=== PATIENT | male | born 1970 | race Caucasian/White ===

== ENCOUNTER 2020-12-04 15:49 | Outpatient (CLI) | payer OTHER, SELFPAY ==
--- NOTE | 2020-12-04 16:01 | XR_ITS ---
WS: [id number] PROCEDURE: XR chest 2V* [id number] CLINICAL INFORMATION: BILATERAL LOWER EXTREMITY EDEMA COMPARISON: FINDINGS: Heart: Cardiomegaly. Lungs: Lungs are clear. No consolidation or pleural fluid. No acute pulmonary infiltrates. Bones: Bilateral total shoulder arthroplasty. Postoperative changes lower cervical spine. XR/XR chest 2V* [id number] IMPRESSION: No acute chest findings.
== END 2020-12-04 15:50 | disposition home or self-care (01) ==
PROVIDERS: PCP Family Medicine; Visit Provider Registered Nurse
DX: R60.0 Localized edema (principal)
CPT/HCPCS: 71046

== ENCOUNTER 2022-04-03 11:42 | Emergency (ER) | payer OTHER, SELFPAY ==
[2022-04-03 11:55] VITALS: BP 119/72; PULSE 85; RESP 18; TEMP 37.4; O2SAT 100; BMI 33.5
[2022-04-03 12:49] LABS: Basophils % 0.3 %; Eosinophils # 0.1 10^3/uL (0.0-0.8); Eosinophils % 1.1 %; Hematocrit 42.5 % (42.0-52.0); Hemoglobin 13.2 g/dL (11.7-16.6); Lymphocytes # 1.1 10^3/uL (0.8-4.8); Lymphocytes % 17.1 %; Mean Corpuscular HGB Conc 31.1 g/dL (30.0-36.0); Mean Corpuscular Hemoglobin 28.5 pg (28.0-34.0); Mean Corpuscular Volume 91.8 fl (80-94); Mean Platelet Volume 9.7 fL (7.4-10.4); Monocytes # 0.4 10^3/uL (0.2-0.9); Monocytes % 6.4 %; Neutrophils # 4.82 10^3/uL (1.8-7.7); Neutrophils % 74.8 %; Nucleated Red Blood Cells % 0 %; Platelet Count 263 10^3/cmm (130-400); Red Blood Count 4.63 10^6/uL (4.1-5.3); Red Cell Distribution Width 12.3 % (12.1-15.1); White Blood Count 6.4 10^3/uL (4.0-10.0)
[2022-04-03 13:05] LABS: Add Urine Microscopic? NO; Charge for UA Resulting for Rev
[2022-04-03 13:07] LABS: Alanine Aminotransferase 17 U/L (0-41); Albumin Level 4.4 g/dL (3.5-5.2); Alkaline Phosphatase 115 U/L (40-130); Anion Gap 15.3 (5-19); Aspartate Amino Transferase 19 U/L (0-40); Blood Urea Nitrogen 8 mg/dL (6-20); Calcium 9.3 mg/dL (8.5-10.5); Carbon Dioxide 26 mmol/L (22-29); Chloride 99 mmol/L (98-107); Glomerular Filtration Rate 102.3 mL/min (90-130); Glucose 98 mg/dL (65-115); Lactate (Lactic Acid level) 1.4 mmol/L (0.5-2.2); Osmolality Calculated 280 mOsm/kg (285-295); Potassium 4.3 mmol/L (3.5-5.1); Sodium 136 mmol/L (136-145); Total Bilirubin 0.4 mg/dL (0.15-1.2); Total Protein 7.4 g/dL (6.6-8.7)
[2022-04-03 13:11] LABS: Bilirubin Urine Neg (Negative); Blood Urine Neg (Negative); Glucose Urine UA Norm (Normal); Ketones Urine Negative (Negative); Leukocyte Esterase Urine Negative (Negative); Nitrate Urine Negative (Negative); Protein Urine Neg (Negative); Specific Gravity, Urine 1.005 (1.005-1.030); Sulfosalicylic Acid Urine Negative (Negative); Urine Appearance Clear (CLEAR); Urine Color Yellow (Yellow); Urobilinogen Urine Norm (Negative); pH Urine 8 (5-7)
--- NOTE | 2022-04-03 14:18 | CT_ITS ---
WS: [id number] CT ABDOMEN PELVIS TECHNIQUE: Contrast-enhanced CT of the abdomen and pelvis with coronal and sagittal reformatted image s. CLINICAL INFORMATION: hernia with possible incarcaration COMPARISON: CT 04/16 2016 DLP: 1111.[address] scans at [facility] use at least one of these dose optimization techniques: automated e xposure control; mA and/or kV adjustment per patient size (includes targeted exams where dose is matc hed to clinical indication); or iterative reconstruction. FINDINGS: Small fat-containing umbilical hernia with a tiny amount of surrounding induration. No drainable flui d collection. No herniated bowel. Umbilical hernia has progressed since 2016. Diffuse fatty infiltration of the liver. Normal spleen. Normal gallbladder. Fatty atrophy of the panc reas. Normal GE junction. Lung bases are well aerated. Normal portal vein and splenic vein. Adrenal g lands are normal. Normal renal parenchymal enhancement. No hydronephrosis. No obstructing renal or ur eteral calculi. A few subcentimeter nonobstructing renal parenchymal calculi. Normal caliber abdominal aorta. Celiac and SMA are patent. Prostate calcification. Sigmoid diverticul osis. No evidence of acute diverticulitis. Normal appendix in the RIGHT lower quadrant. CT/CT abdomen pelvis w con* [id number] IMPRESSION: 1. Small incarcerated fat-containing umbilical hernia with a small amount of a ssociated induration. No herniated bowel or fluid collection. Recommend correla tion with area of pain. 2. Mild diffuse fatty infiltration of the liver. 3. Small esophageal hiatal hernia. 4. No other acute findings.
--- NOTE | 2022-04-03 15:07 | ED_ITS ---
HPI - Abdominal Pain General: Chief Complaint: Abdominal Pain Stated Complaint: possible hernia Time Seen by Provider: 04/03/22 14:50 Source: patient Mode of arrival: ambulatory History of Present Illness: 52-year-old male presents emergency room with an umbilical hernia. He was at the doctor's office has a protruding umbilical hernia has had it for the last 5 days he has not had any difficulty with bowel or bladder he has been passing flatus having bowel movements normally through today. Has not had any fever sweats or chills no vomiting is been able to eat and drink without difficulty. He just began to notice it a few days ago. MD elicited complaint: abdominal pain Onset (ago): day(s) Pain Consistency: intermittent Location: Periumbilical Severity: mild Quality: cramping Radiation: none Migration to: no migration Exacerbating factors: other (Palpation) Relieving factors: nothing Associated Symptoms: Reports bloating, GI cramping and nausea; Denies anorexia, belching, change in bowel habits, change in stool character, chills, coffee ground emesis, constipation, diarrhea, dyspepsia, dysuria, excessive flatus, fever(s), heartburn, hematochezia, hematuria, hematemesis, fecal incontinence, loose stools, melena, poor appetite, syncope and vomiting Review of Systems Const: Denies: fever(s), chills, fatigue or malaise ENMT: Denies: throat pain, ear or mastoid pain, nasal discharge or nasal congestion Card: Denies: chest pain, palpitations, irregular heart rhythm or syncope Resp: Denies: dyspnea, productive cough or non-productive cough GI: Reports: nausea, bloating and GI cramping; Denies: vomiting, hematemesis, coffee ground emesis, heartburn, diarrhea, constipation, belching, excessive flatus, fecal incontinence, change in bowel habits, change in stool character, hematochezia or melena : Denies: flank pain, difficulty urinating, dysuria, urinary frequency, urinary urgency or hematuria Skin/Breast: Denies: rash or pruritus PFSH ED PFSH: Medical History (Updated 04/18/22 @ 06:28 by Jamey Sparrow DO) Depression Hypogonadism Surgical History History of back surgery Hx of appendectomy Hx of colonoscopy Hx of hand surgery Hx of right knee surgery Hx of shoulder replacement Social History Smoking and tobacco status: never smoked Alcohol intake: unknown Physical Exam Const: COMMON NORMALS: no acute distress GENERAL APPEARANCE: cooperative and comfortable ORIENTATION/CONSCIOUSNESS: Yes awake, Yes oriented to person, Yes oriented to place and Yes oriented to time Resp: COMMON NORMALS: normal respiratory effort, No retractions, No use of accessory muscles and clear to auscultation bilaterally AUSCULTATION: clear to auscultation bilaterally Cardio: COMMON NORMALS: regular rate, regular rhythm and No murmurs present (Cardio) RATE: regular rate RHYTHM: regular rhythm GI: COMMON NORMALS: Soft to palpation and No hepatosplenomegaly present AUS CULTATION: Yes normoactive bowel sounds PALPATION: Yes Soft to palpation, No Tenderness to palpation present (GI), No Guarding due to palpation present (GI) and Yes No hepatosplenomegaly present OTHER: Small umbilical herniaModerately painful but able to reduce. Extremity: COMMON NORMALS: normal to inspection, capillary refill normal, no clubbing, cyanosis or edema, no calf tenderness and no pedal edema Neuro: SENSORIUM/ORIENTATION: Yes oriented to person, Yes oriented to place and Yes oriented to time Skin: COMMON NORMALS: no rashes or lesions noted GENERAL SKIN EXAM: no rashes or lesions noted Course Vital Signs: Vital signs: Vital Signs Temperature 99.3 F 04/03/22 11:55 Pulse Rate 87 04/03/22 17:21 Respiratory Rate 14 04/03/22 17:21 Blood Pressure 128/78 04/03/22 17:21 Pulse Oximetry 98 04/03/22 17:21 Oxygen Delivery Me thod 04/03/22 11:55 MDM - Abdominal Pain Medical Decision Making Reducible umbilical hernia. Limit heavy lifting we will schedule with general surgery for evaluation if develops nausea vomiting return to the emergency room Medical Records I reviewed the patient's medical records. Lab Data I reviewed the patient's lab results. : 04/03/22 12:37 04/03/22 12:37 Labs/Radiology: Radiology Impressions Abdomen/Pelvis CT 04/03/22 14:18 IMPRESSION: 1. Small incarcerated fat-containing umbilical hernia with a small amount of associated induration. No herniated bowel or fluid collection. Recommend correlation with area of pain. 2. Mild diffuse fatty infiltration of the liver. 3. Small esophageal hiatal hernia. 4. No other acute findings. Laboratory Results WBC 6.4 10^3/uL (4.0-10.0) 04/03/22 12:37 RBC 4.63 10^6/uL (4.1-5.3) 04/03/22 12:37 Hgb 13.2 g/dL (11.7-16.6) 04/03/22 12:37 Hct 42.5 % (42.0-52.0) 04/03/22 12:37 MCV 91.8 fl (80-94) 04/03/22 12:37 MCH 28.5 pg (28.0-34.0) 04/03/22 12:37 MCHC 31.1 g/dL (30.0-36.0) 04/03/22 12:37 RDW 12.3 % (12.1-15.1) 04/03/22 12:37 Plt Count 263 10^3/cmm (130-400) 04/03/22 12:37 MPV 9.7 fL (7.4-10.4) 04/03/22 12:37 Neut % (Auto) 74.8 % 04/03/22 12:37 Lymph % (Auto) 17.1 % 04/03/22 12:37 Calloway % (Auto) 6.4 % 04/03/22 12:37 Eos % (Auto) 1.1 % 04/03/22 12:37 Baso % (Auto) 0.3 % 04/03/22 12:37 Neut # (Auto) 4.82 10^3/uL (1.8-7.7) 04/03/22 12:37 Lymph # (Auto) 1.1 10^3/uL (0.8-4.8) 04/03/22 12:37 Calloway # (Auto) 0.4 10^3/uL (0.2-0.9) 04/03/22 12:37 Eos # (Auto) 0.1 10^3/uL (0.0-0.8) 04/03/22 12:37 Baso # (Auto) 0.0 10^3/uL (0.0-0.1) 04/03/22 12:37 Nucleated RBC % (auto) 0 % 04/03/22 12:37 Nucleated RBCs # 0.0 /100WBC 04/03/22 12:37 Sodium 136 mmol/L (136-145) 04/03/22 12:37 Potassium 4.3 mmol/L (3.5-5.1) 04/03/22 12:37 Chloride 99 mmol/L (98-107) 04/03/22 12:37 Carbon Dioxide 26 mmol/L (22-29) 04/03/22 12:37 Anion Gap 15.3 (5-19) 04/03/22 12:37 BUN 8 mg/dL (6-20) 04/03/22 12:37 Creatinine 0.8 mg/dL (0.7-1.2) 04/03/22 12:37 GFR Calculation 102.3 mL/min (90-130) 04/03/22 12:37 Glucose 98 mg/dL (65-115) 04/03/22 12:37 Calculated Osmolality 280 mOsm/kg (285-295) L 04/03/22 12:37 Lactate 1.4 mmol/L (0.5-2.2) 04/03/22 12:37 Calcium 9.3 mg/dL (8.5-10.5) 04/03/22 12:37 Total Bilirubin 0.4 mg/dL (0.15-1.2) 04/03/22 12:37 AST 19 U/L (0-40) 04/03/22 12:37 ALT 17 U/L (0-41) 04/03/22 12:37 Alkaline Phosphatase 115 U/L (40-130) 04/03/22 12:37 Total Protein 7.4 g/dL (6.6-8.7) 04/03/22 12:37 Albumin 4.4 g/dL (3.5-5.2) 04/03/22 12:37 Globulin 3.0 g/dL (1.3-4.6) 04/03/22 12:37 Urine Color Yellow (Yellow) 04/03/22 12:45 Urine Appearance Clear (CLEAR) 04/03/22 12:45 Urine pH 8 (5-7) H 04/03/22 12:45 Ur Specific Lambert 1.005 (1.005-1.030) 04/03/22 12:45 Urine Protein Neg (Negative) 04/03/22 12:45 Urine Glucose (UA) Norm (Normal) 04/03/22 12:45 Urine Ketones Negative (Negative) 04/03/22 12:45 Urine Blood Neg (Negative) 04/03/22 12:45 Urine Nitrate Negative (Negative) 04/03/22 12:45 Urine Bilirubin Neg (Negative) 04/03/22 12:45 Prot Sulfosalicylic Acd Negative (Negative) 04/03/22 12:45 Urine Urobilinogen Norm mg/dL (Negative) 04/03/22 12:45 Ur Leukocyte Esterase Negative (Negative) 04/03/22 12:45 Discharge Plan Discharge Patient Disposition: Home Clinical Impression: Hernia, umbilical Prescriptions: No Action phentermine 37.5 mg tablet 37.5 mg PO DAILY tramadol 50 mg tablet 100 mg PO Q8H PRN (Reason: Pain) citalopram 20 mg tablet 20 mg PO DAILY bumetanide 1 mg tablet 1 mg PO DAILY testosterone cypionate 200 mg/mL oil See Rx Instructions .ROUTE .COMPLEX Rx Instructions: 0.5 ML INTRAMUSCULARLY EVERY 28 DAYS Discharge Orders: Discharge ED (Routine); Ordered 04/03/22 Ordered By: Jamey Sparrow Referrals: Robson Valentine [Primary Care Provider] - Patient Instructions: Opioid Safety Activity Restrictions/Additional Instructions: senior business development manager will make arrangements for her to follow-up with general surgery for the umbilical hernia. Avoid any lifting greater than 10 pounds. Stand Alone Forms: Work/School Release Coding Level of Care Code ED Radiology Aide for [employer] Fwd Exam Detailed
[2022-04-03] MEDS: iohexol 350 mg/mL 100 mL Btl IV (15:44)
[2022-04-03 16:45] VITALS: BP 138/74; PULSE 89; RESP 16
[2022-04-03 17:21] VITALS: BP 128/78; PULSE 87; RESP 14; O2SAT 98
--- NOTE | 2022-04-06 11:07 | DCPLANNER ---
Addendum entered by Colleen Galicia 04/08/22 08:36: Patient had a follow up appointment scheduled for 04.07.[address] Agawral at general surgery - patient did attend appointment. Original Note: records and information manager had message to schedule a follow up appointment for patient with general surgery. records and information manager sent patients information to the front office staff at general surgery. Clinic will call patient with appointment information.
== END 2022-04-03 17:22 | disposition home or self-care (01) ==
PROVIDERS: Emergency Medicine; Physician Assistant; Emergency Provider Family Medicine; PCP Family Medicine
DX: K42.9 Umbilical hernia without obstruction or gangrene (principal)
CPT/HCPCS: 74177; 80053; 81003; 83605; 85025; 99285; Q9967

== ENCOUNTER 2022-04-23 07:28 | Day surgery (SDC) | payer OTHER, SELFPAY ==
[2022-04-22 13:04] VITALS: BMI 34.2
[2022-04-23] VITALS (10 sets, daily range): BP systolic 117–132; BP diastolic 76–97; PULSE 64–77; RESP 15–18; TEMP 36.3–36.7; O2SAT 96–100
[2022-04-23] MEDS: sodium chloride 0.9% 1,000 ML 30 ML IV (08:35)
--- NOTE | 2022-04-23 08:52 | ANES.PREANE2 ---
Pre-Anesthetic Assessment Height/Weight: Height 1.8 m Weight 111.13 kg Temp Pulse Resp BP Pulse Ox O2 Del Method 98.0 F 65 16 128/97 99 04/23/22 07:57 04/23/22 07:57 04/23/22 07:57 04/23/22 07:57 04/23/22 07:57 04/23/22 07:57 Preop Diagnosis: umbilical hernia Operation Date: 04/23/22 08:50 Proposed Procedures p Laparoscopic Umbilical Hernia Repair(Not Applicable) - Jefry Agarwal DO Familial anesthetic complications: None Was Beta Chan taken within 24 hours: N/A Was Clonidine taken within 24 hours: N/A Last intake: Intake Last Liquid Date 04/22/22 Last Liquid Time 17:00 Last Solid Date 04/22/22 Last Solid Time 17:00 Social No alcohol and No tobacco Exam alert, oriented x 3, clear to auscultation bilaterally and regular rate & rhythm Airway Mallampati: Class III Dentition: chipped Neuropsych Depression Anesthetic Plan ASA status: 2 Anesthesia: General Risk of > 500 ml blood loss (7ml/kg in children): No Medications/Allergies Home Medications Medication Instructions Recorded Confirmed Last Taken Type citalopram 20 mg tablet 20 mg PO DAILY 04/03/22 04/23/22 04/23/22 History Allergies Allergy/AdvReac Type Severity Reaction Status Date / Time Penicillins Allergy Unknown Verified 04/22/22 13:02 Current Medications Generic Name Dose Route Start Last Admin Trade Name Freq PRN Reason Stop Dose Admin Sodium Chloride 1,000 mls @ 30 mls/hr 04/23/22 08:00 04/23/22 08:35 Sodium Chloride 0.9% IV 04/24/22 07:59 30 mls/hr .Q24H VIET Administration PFSH Anesthesia Medical History (Updated 04/18/22 @ 06:28 by Jamey Sparrow DO) Depression Hypogonadism Surgical History History of back surgery Hx of appendectomy Hx of colonoscopy Hx of hand surgery Hx of right knee surgery Hx of shoulder replacement Social History Smoking and tobacco status: never smoked Alcohol intake: unknown Data Anesthesia Cardiac Studies: No Data to Display
--- NOTE | 2022-04-23 08:54 | W.PM.OPSUD ---
Surgery/Procedure H&P Update DATE OF PROCEDURE: April 23, 2022 DATE H&P PERFORMED: 04/07/22 PREOP DIAGNOSIS: umbilical hernia PLANNED PROCEDURE: Operation Date: 04/23/22 08:50 Proposed Procedures p Laparoscopic Umbilical Hernia Repair(Not Applicable) - Jefry Agarwal DO
[2022-04-23] MEDS: vancomycin 1,000 MG in sodium chloride 0.9% 250 ML 250 MG IV (09:18)
--- NOTE | 2022-04-23 09:58 | PM.OP ---
Operative Report Date of procedure: April 23, 2022 Pre-op diagnosis: Preop Diagnosis umbilical hernia Post-op diagnosis: same Procedure done: Laparoscopic repair of umbilical hernia with mesh Implants: 11 cm ventral light mesh Specimens removed/disposition: Hernia sac Surgeon: Dr. Jefry Agarwal DO Anesthesia: General Estimated blood loss (mL): 5 Complications: None apparent Brief History: This is a very pleasant 52 with umbilical hernia. Laparoscopic repair with mesh was indicated. The risks and benefits were explained and documented Procedure: Patient was wheeled into the operative room and placed on the OR table in a supine position. Abdomen was inspected prepped and draped in usual sterile fashion. Time-out was performed and all present were in agreement. A 15 blade scalp was used to make a 5 millimeter incision left upper quadrant. A Veress needle was placed into the incision and intra-abdominal insufflation was brought to 15 millimeters of mercury. A 5 mm trocar was placed in the left upper quadrant under Optiview. A 12 mm trocar was then placed in the left lower quadrant under direct vision. The energy device was then used to cut out the hernia sac. A 1.2 cm hernia was seen at the umbilicus. An 11 centimeter mesh was placed into the abdomen and brought up through the umbilicus using a Carlyle-Victor Manuel. The mesh was then tacked in place in a double crown fashion. The hernia sac was then removed from the abdomen via an endobag at the left lower quadrant. The skeleton was removed from the mesh. The left lower quadrant port site was closed with an 0 Vicryl suture in a Carlyle-Victor Manuel in a [id number] fashion. Incisions were closed with 4 O Vicryl in a subcuticular interrupted fashion. Skin glue was applied. A dressing that included cotton balls and a Tegaderm was placed over the umbilicus. Patient tolerated the procedure well.
[2022-04-23] MEDS: fentaNYL 50 mcg/mL INJ 2mL IVP (10:26)
[2022-04-23] MEDS: HYDROcodone-acetaminophen 7.5-325 mg Tablet 1 TAB PO (12:22)
== END 2022-04-23 12:35 | disposition home or self-care (01) ==
PROVIDERS: PCP Family Medicine; Visit Provider Surgery
PROC: 0WQF4ZZ Repair Abdominal Wall, Percutaneous Endoscopic Approach (ICD-10-PCS; CPT 49652; principal; 2022-04-23 08:40)
DX: K42.9 Umbilical hernia without obstruction or gangrene (principal); F32.A Depression, unspecified
CPT/HCPCS: 49652; 88302; C1781; J1100; J2405; J2704; J2710; J3010; J3370; J3490; J7030; J7050